=== PATIENT | female | born 1990 | race Caucasian/White ===

== ENCOUNTER 2017-08-19 17:36 | Emergency (ER) | payer OTHER, MEDICAID ==
--- NOTE | 2017-08-19 17:51 | ED Physician Documentation ---
PD HPI UPPER EXT INJURY - Stated complaint Stated Complaint: R HAND INJ - Chief complaint Chief Complaint: General - History obtained from History obtained from: Patient - History of Present Illness Location: Other (Right-handed woman who is up-to-date on tetanus Was at work today and a heavy metal implement rolled over her Third and fourth fingers, no other injuries.) Review of Systems Constitutional: reports: Reviewed and negative Cardiac: reports: Reviewed and negative Respiratory: reports: Reviewed and negative PD PAST MEDICAL HISTORY - Past Medical History Respiratory: Asthma - Past Surgical History Past Surgical History: No - Present Medications Home Medications: Ambulatory Orders Medication Instructions Recorded Confirmed Albuterol Sulfate [Albuterol 02/08/15 02/08/15 Sulfate Hfa] Cetirizine HCl [Zyrtec] 02/08/15 02/08/15 Cymbacort 02/08/15 02/08/15 Montelukast Sodium [Singulair] 02/08/15 02/08/15 No Known Home Medications [No 02/08/15 02/08/15 Known Home Medications] - Allergies Allergies/Adverse Reactions: Allergies Allergy/AdvReac Type Severity Reaction Status Date / Time No Known Drug Allergies Allergy Verified 08/19/17 17:52 - Social History Does the pt smoke?: Yes Smoking Status: Current every day smoker Does the pt drink ETOH?: Yes - POLST Patient has POLST: No PD ED PE NORMAL - Vitals Vital signs reviewed: Yes - General General: Alert and oriented X 3, No acute distress - Derm Derm: Normal color, Warm and dry - Psych Psych: Normal mood, Normal affect PD ED PE EXPANDED - Extremities JADA UE/Hands Visual: 1 - laceration (Deeper laceration, less than 1 cm In length though with normal flexor tendon function and neurovascular status at the tip.) 2 - laceration (On the radial side of the digit there is a shallow laceration with about a 20% subungual hematoma, some swelling and tenderness there. She is insensate on the side of the nailbed there but just at the distal tip.) Results - Vitals Vitals: Vital Signs - 24 hr 08/19/17 08/19/17 17:39 19:17 Temperature 36.1 C L 36.3 C L Heart Rate 83 84 Respiratory 18 18 Rate Blood Pressure 142/93 H 138/74 H O2 Saturation 99 99 Oxygen O2 Source Room air - Rads (name of study) 3 views of the right hand Radiology: EMP read contemporaneously (Soft tissue swelling, no fracture) Procedures - Laceration (location) R Length in cm: 1 Wound type: Linear Anesthesia: Lidocaine 1% Wound Preparation: Betadine, Irrigated copiously NS Skin layer closure: Nylon, Interrupted, Size #-0 - enter number (4-0), Sutures - enter # (2) Other: Patient tolerated well, No complications, Neurovascular intact, Dressing applied Complexity: Simple Departure - Departure Disposition: 01 Home, Self Care Clinical Impression: Crush injury of hand Qualifiers: Encounter type: initial encounter Laterality: right Qualified Code(s): S67.21XA - Crushing injury of right hand, initial encounter Finger laceration Qualifiers: Encounter type: initial encounter Finger: unspecified finger Damage to nail status: without damage Foreign body presence: without foreign body Laterality: right Qualified Code(s): S61.219A - Laceration without foreign body of unspecified finger without damage to nail, initial encounter Condition: Good Record reviewed to determine appropriate education?: Yes Instructions: ED Laceration Hand Comments: Come back for any signs of infection which would include: Redness, swelling, drainage, increased pain, or fevers. Follow-up with your physician in 14 days for suture removal. Your blood pressure was elevated today on check into the emergency department. This does not mean that you have hypertension, it is a common phenomenon to come to the emergency department and have elevated blood pressure. I recommend that you see your primary care physician within the week to have it rechecked when you are feeling better. Forms: Activity restrictions Discharge Date/Time: 08/19/17 19:00
[2017-08-19] MEDS ORDERED: BUFFERED LIDOCAINE 10 ML SYRINGE SUBQ STA (17:53)
[2017-08-19] MEDS ORDERED: LIDOCAINE 1% 2 ML VIAL SUBQ STA (17:56)
[2017-08-19] MEDS ORDERED: LIDOCAINE 1% 2 ML VIAL ONE (18:03)
[2017-08-19 19:18] VITALS: BP 138/74
--- NOTE | 2017-08-19 19:18 | XRAY Report ---
EXAM: RIGHT HAND RADIOGRAPHY EXAM DATE: 08/19/2017 06:51 PM. CLINICAL HISTORY: Crush injury COMPARISON: None. TECHNIQUE: 3 views. FINDINGS: Bones: Normal. No fractures or bone lesions. Joints: Normal. No subluxations. Soft Tissues: There is soft tissue swelling over the distal tip of the long finger. IMPRESSION: Soft tissue swelling around the distal tip of the long finger. No acute fractures are zoë dent. [facility] Referring Provider Line: [phone] SITE ID: [id number]
== END 2017-08-19 19:00 | disposition home or self-care (01) ==
LOC: ED 17:36
DX: S67.21XA Crushing injury of right hand, initial encounter (principal); S61.214A Laceration without foreign body of right ring finger without damage to nail, initial encounter; W31.82XA Contact with other commercial machinery, initial encounter; Y99.0 Civilian activity done for income or pay; R03.0 Elevated blood-pressure reading, without diagnosis of hypertension; J45.909 Unspecified asthma, uncomplicated; F17.200 Nicotine dependence, unspecified, uncomplicated
CPT/HCPCS: 12001; 99283

== ENCOUNTER 2018-06-04 07:46 | Emergency (ER) | payer SELFPAY ==
[2018-06-04 08:02] VITALS: BP 134/75
--- NOTE | 2018-06-04 08:48 | ED Physician Documentation ---
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 She now has some swelling around her eye as well. Seems to be extending over to the other eye. She has improvement in the amount of swelling today after being up and ambulating. She has had something similar to this happen in her armpit where she allowed the infection to get to the size of a baseball and had to be incised and drained. She does state that she has been getting some drainage out of the area by pushing in it and expressing the area. She has been using a warm compress. Review of Systems Constitutional: denies: Fever, Chills, Myalgias Eyes: reports: Other (blurring of the vision. Swelling colt-orbital to the right). 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 - Present Medications Home Medications: Ambulatory Orders Medication Instructions Recorded Confirmed Albuterol Sulfate [Albuterol 02/08/15 02/08/15 Sulfate Hfa] Montelukast Sodium [Singulair] 02/08/15 02/08/15 Sulfamethox/Trimeth 800/160 1 each PO BID #14 tablet 06/04/18 [Bactrim Ds 800/160] - Allergies Allergies/Adverse Reactions: Allergies Allergy/AdvReac Type Severity Reaction Status Date / Time No Known Drug Allergies Allergy Verified 06/04/18 08:02 - Social History Does the pt smoke?: Yes Smoking Status: Current every day smoker Does the pt drink ETOH?: Yes Does the pt have substance abuse?: No - Immunizations Immunizations are current?: Yes - POLST Patient has POLST: No PD ED PE NORMAL - Vitals Vital signs reviewed: Yes (normal ) - General General: Alert and oriented X 3, No acute distress, Well developed/nourished - HEENT HEENT: Atraumatic, PERRL, EOMI, Other (There is a raised area about 2cm round over the right eye and there is swelling that extends to the colt-orbital tissues on the right and blunts the epicanthal fold. There is no fluctuance to the area and I am not able to express pus now. There is extention of the swelling to the left just reaching the corner of the left eyebrow this morning.) - Neck Neck: Supple, no meningeal sign, No bony TTP - Respiratory Respiratory: No respiratory distress - Derm Derm: Normal color, Warm and dry, No rash - Extremities Extremities: No deformity, No edema - Neuro Neuro: Alert and oriented X 3, profile trimmer 2-12 intact, No motor deficit, No sensory deficit, Normal speech Eye Opening: Spontaneous Motor: Obeys Commands Verbal: Oriented GCS Score: 15 - Psych Psych: Normal mood, Normal affect Results - Vitals Vitals: Vital Signs - 24 hr 06/04/18 07:53 Temperature 36 C L Heart Rate 73 Respiratory 16 Rate Blood Pressure 134/75 H O2 Saturation 96 Oxygen O2 Source Room air PD MEDICAL DECISION MAKING - ED course Complexity details: considered differential, d/w patient, d/w family ED course: 27-year-old female with an abscess to the forehead that is tracked down into the periorbital tissues does not have fluctuance this morning and we have discussed ripening and reasons to return to the emergency department. She will continue use a warm compress will place her on some . Departure - Departure Disposition: 01 Home, Self Care Clinical Impression: Abscess of forehead Condition: Stable Instructions: ED Staph Infec Abx Tx Only Follow-Up: Natalie Short PA [Primary Care Provider] - Prescriptions: Sulfamethox/Trimeth 800/160 [Bactrim Ds 800/160] 1 each PO BID #14 tablet
== END 2018-06-04 09:04 | disposition home or self-care (01) ==
LOC: ED 07:46
DX: L02.01 Cutaneous abscess of face (principal); F17.200 Nicotine dependence, unspecified, uncomplicated
CPT/HCPCS: 99283

== ENCOUNTER 2019-02-22 16:17 | Emergency (ER) | payer SELFPAY ==
--- NOTE | 2019-02-22 16:38 | ED Physician Documentation ---
History of Present Illness - Stated complaint Stated Complaint: FEM /UNABLE TO MOVE HANDS - Chief complaint Chief Complaint: General - History obtained from History obtained from: Patient - History of Present Illness Timing: Today Pain level max: 0 Pain level now: 0 Improved by: nothing Worsened by: nothing - Additonal information Additional information: states having hand spasms today. worse with movement and better with rest. had 1 episode of dry heaving today. No recent travel. Smokes 1 ppd and drinks 5-6 alcohol drinks per day. takes albuterol at home. Denies IVDU. 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 Also states having vaginal bleeding. States copper IUD placed in 05/2018. States had cramping 3 months ago. States longer menses than normal. States 14 days of bleeding at this time. 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 - Present Medications Home Medications: Ambulatory Orders Medication Instructions Recorded Confirmed Albuterol Sulfate [Albuterol 02/08/15 02/08/15 Sulfate Hfa] Montelukast Sodium [Singulair] 02/08/15 02/08/15 - Allergies Allergies/Adverse Reactions: Allergies Allergy/AdvReac Type Severity Reaction Status Date / Time No Known Drug Allergies Allergy Verified 02/22/19 16:22 - Social History Does the pt smoke?: Yes Smoking Status: Current every day smoker Does the pt drink ETOH?: Yes Does the pt have substance abuse?: No - Immunizations Immunizations are current?: Yes - POLST Patient has POLST: No PD ED PE NORMAL - Vitals Vital signs reviewed: Yes - General General: Alert and oriented X 3, No acute distress - HEENT HEENT: Moist mucous membranes - Neck Neck: Supple, no meningeal sign - Cardiac Cardiac: RRR - Respiratory Respiratory: No respiratory distress, Clear bilaterally - Abdomen Abdomen: Soft, Non tender, Non distended - Derm Derm: Warm and dry - Extremities Extremities: Other (hands held in carpal spasm position.) - Neuro Neuro: Alert and oriented X 3 - Psych Psych: Normal mood, Normal affect Results - Vitals Vitals: Vital Signs - 24 hr 02/22/19 02/22/19 16:19 18:37 Temperature 36.9 C Heart Rate 84 65 Respiratory 20 18 Rate Blood Pressure 140/86 H 132/82 H O2 Saturation 98 98 Oxygen O2 Source Room air - Labs Labs: Laboratory Tests 02/22/19 02/22/19 02/22/19 17:00 17:00 17:00 WBC 4.9 RBC 4.31 Hgb 14.0 Hct 42.6 MCV 98.8 MCH 32.5 H MCHC 32.9 RDW 13.4 Plt Count 235 MPV 9.3 Neut # (Auto) 1.3 L Lymph # (Auto) 3.1 Rush # (Auto) 0.4 Eos # (Auto) 0.1 Baso # (Auto) 0.1 Absolute Nucleated RBC 0.00 Nucleated RBC % 0.0 Sodium 143 Potassium 3.6 Chloride 105 Carbon Dioxide 25 Anion Gap 13.0 BUN 9 Creatinine 0.6 Estimated GFR (MDRD) 118 Glucose 96 Calcium 8.9 Phosphorus 4.1 Magnesium 2.0 Total Bilirubin 0.5 AST 30 ALT 26 Alkaline Phosphatase 45 Total Protein 7.5 Albumin 4.4 Globulin 3.1 Albumin/Globulin Ratio 1.4 Lipase 26 TSH 0.96 Urine Color Urine Clarity Urine pH Ur Specific [place] Urine Protein Urine Glucose (UA) Urine Ketones Urine Occult Blood Urine Nitrite Urine Bilirubin Urine Urobilinogen Ur Leukocyte Esterase Ur Microscopic Review Urine Culture Comments Urine HCG, Qual Salicylates < 6.0 Urine Opiates Screen Ur Oxycodone Screen Urine Methadone Screen Ur Propoxyphene Screen Acetaminophen < 10 L Ur Barbiturates Screen Ur Tricyclics Screen Ur Phencyclidine Scrn Ur Amphetamine Screen U Methamphetamines Scrn U Benzodiazepines Scrn Urine Cocaine Screen U Cannabinoids Screen Ethyl Alcohol 319.0 02/22/19 02/22/19 17:00 17:00 WBC RBC Hgb Hct MCV MCH MCHC RDW Plt Count MPV Neut # (Auto) Lymph # (Auto) Rush # (Auto) Eos # (Auto) Baso # (Auto) Absolute Nucleated RBC Nucleated RBC % Sodium Potassium Chloride Carbon Dioxide Anion Gap BUN Creatinine Estimated GFR (MDRD) Glucose Calcium Phosphorus Magnesium Total Bilirubin AST ALT Alkaline Phosphatase Total Protein Albumin Globulin Albumin/Globulin Ratio Lipase TSH Urine Color YELLOW Urine Clarity CLEAR Urine pH 6.0 Ur Specific [place] <=1.005 Urine Protein NEGATIVE Urine Glucose (UA) NEGATIVE Urine Ketones NEGATIVE Urine Occult Blood NEGATIVE Urine Nitrite NEGATIVE Urine Bilirubin NEGATIVE Urine Urobilinogen 0.2 (NORMAL) Ur Leukocyte Esterase NEGATIVE Ur Microscopic Review NOT INDICATED Urine Culture Comments NOT INDICATED Urine HCG, Qual NEGATIVE Salicylates Urine Opiates Screen NEGATIVE Ur Oxycodone Screen NEGATIVE Urine Methadone Screen NEGATIVE Ur Propoxyphene Screen NEGATIVE Acetaminophen Ur Barbiturates Screen NEGATIVE Ur Tricyclics Screen NEGATIVE Ur Phencyclidine Scrn NEGATIVE Ur Amphetamine Screen NEGATIVE U Methamphetamines Scrn NEGATIVE U Benzodiazepines Scrn NEGATIVE Urine Cocaine Screen NEGATIVE U Cannabinoids Screen NEGATIVE Ethyl Alcohol PD MEDICAL DECISION MAKING - ED course Complexity details: reviewed results, re-evaluated patient, considered di fferential, d/w patient, d/w family ED course: 28-year-old female presents to the emergency department with carpal spasms. Also appears to be having dysfunctional uterine bleeding associated with her IUD. No significant anemia. She is well-appearing, nontoxic. Afebrile. Abdomen soft, nontender nondistended. No significant laboratory abnormalities. Feels better after IV fluids and a banana bag. Symptoms resolved. Counseled regarding cessation of alcohol use. Resources given. Patient counseled regarding signs and symptoms for which I believe and urgent re-evaluation would be necessary. Patient with good understanding of and agreement to plan and is comfortable going home at this time This document was made in part using voice recognition software. While efforts are made to proofread this document, sound alike and grammatical errors may occur. Departure - Departure Disposition: 01 Home, Self Care Clinical Impression: Spasms of the hands or feet, Dysfunctional uterine bleeding Alcohol intoxication Qualifiers: Complication of substance-induced condition: uncomplicated Qualified Code(s): F10.920 - Alcohol use, unspecified with intoxication, uncomplicated Condition: Good Instructions: ED Bleed Irregular Vaginal, ED Alcohol Intoxication Follow-Up: your,doctor in 1 week [Other] Comments: Drink plenty of water. Follow-up with your doctor for further care. You should stop drinking. Resources were given to you today. You should also follow-up with your doctor regarding your dysfunctional uterine bleeding from your IUD. Return if you worsen Discharge Date/Time: 02/22/19 18:46
[2019-02-22] MEDS ORDERED: SODIUM CHLORIDE 0.9% 1,000 ML IV ONE (16:58)
[2019-02-22 17:08] LABS: MUDS CUTOFF CONCENTRATIONS CUTOFF CONC BELOW:
[2019-02-22 17:09] LABS: BASOPHILS # (AUTO) 0.1 10^3/uL (0.0-0.1); BASOPHILS % (AUTO) 1.2 %; EOSINOPHILS # (AUTO) 0.1 10^3/uL (0.0-0.7); EOSINOPHILS % (AUTO) 2.2 %; LYMPHOCYTES # (AUTO) 3.1 10^3/uL (1.5-3.5); LYMPHOCYTES % (AUTO) 62.8 %; MEAN CORPUSCULAR HEMOGLOBIN 32.5 pg (27.0-31.0); MEAN CORPUSCULAR HGB CONC 32.9 g/dL (32.0-36.0); MEAN CORPUSCULAR VOLUME 98.8 fL (81.0-99.0); MEAN PLATELET VOLUME 9.3 fL (7.9-10.8); MONOCYTES # (AUTO) 0.4 10^3/uL (0.0-1.0); NEUTROPHILS # (AUTO) 1.3 10^3/uL (1.5-6.6); NEUTROPHILS % (AUTO) 25.6 %; PLT - PLATELET COUNT 235 10^3/uL (130-450); RED BLOOD COUNT 4.31 10^6/uL (4.20-5.40); RED CELL DISTRIBUTION WIDTH 13.4 % (12.0-15.0); WHITE BLOOD COUNT 4.9 x10^3/uL (4.8-10.8)
[2019-02-22 17:12] LABS: BILIRUBIN,URINE NEGATIVE (NEGATIVE); GLUCOSE, URINE (UA) NEGATIVE (NEGATIVE); KETONES,URINE (UA) NEGATIVE (NEGATIVE); LEUKOCYTE ESTERASE, URINE NEGATIVE (NEGATIVE); NITRITE,URINE NEGATIVE (NEGATIVE); OCCULT BLOOD,URINE NEGATIVE (NEGATIVE); PROTEIN,URINE NEGATIVE (NEGATIVE); UROBILINOGEN,URINE 0.2 (NORMAL) E.U./dL (NORMAL)
[2019-02-22 17:14] LABS: CLARITY,URINE CLEAR (CLEAR); HCG UR QUAL NEGATIVE
[2019-02-22 17:29] LABS: CARBON DIOXIDE - CO2 25 mmol/L (21-32); CHLORIDE 105 mmol/L (101-111); SODIUM 143 mmol/L (135-145)
[2019-02-22 17:30] LABS: ALKALINE PHOSPHATASE 45 IU/L (42-121); ALT ALANINE AMINOTRANSFERASE 26 IU/L (10-60); AST ASPARTATE AMINOTRANSFERASE 30 IU/L (10-42); BILIRUBIN,TOTAL 0.5 mg/dL (0.2-1.0); BUN - BLOOD UREA NITROGEN 9 mg/dL (6-20); CALCIUM 8.9 mg/dL (8.5-10.3); CREATININE 0.6 mg/dL (0.4-1.0); GFR - MDRD 118 (>89); GLUCOSE 96 mg/dL (70-100); PHOSPHORUS 4.1 mg/dL (2.5-4.6); TOTAL PROTEIN 7.5 g/dL (6.7-8.2)
[2019-02-22 17:31] LABS: ALBUMIN 4.4 g/dL (3.2-5.5); ALBUMIN/GLOBULIN RATIO 1.4 (1.0-2.2); LIPASE 26 U/L (22-51)
[2019-02-22 17:32] LABS: ACETAMINOPHEN < 10 ug/mL (10-30); SALICYLATE < 6.0 mg/dL
[2019-02-22] MEDS ORDERED: FOLIC ACID INJ 1 MG, THIAMINE INJ 100 MG, MAGNESIUM SULFATE 2 GM, MULTIVITAMIN 10 ML in... IV STA ×5 (17:39)
[2019-02-22 17:41] LABS: AMPHETAMINE SCREEN,URINE NEGATIVE (NEGATIVE); BENZODIAZEPINES SCREEN, URINE NEGATIVE (NEGATIVE); COCAINE SCREEN URINE NEGATIVE (NEGATIVE); METHADONE SCREEN, URINE NEGATIVE (NEGATIVE); METHAMPHETAMINES SCREEN, URINE NEGATIVE (NEGATIVE); OPIATE SCREEN, URINE NEGATIVE (NEGATIVE); OXYCODONE SCREEN, URINE NEGATIVE (NEGATIVE); PROPOXYPHENE SCREEN, URINE NEGATIVE (NEGATIVE); TRICYCLIC ANTIDEPRESSANT,URINE NEGATIVE (NEGATIVE)
[2019-02-22] MEDS ORDERED: THIAMINE 100 MG/1 ML 2 ML MDV ONE (17:56)
[2019-02-22] MEDS ORDERED: MAGNESIUM SULFATE 1 GM/2 ML VIAL ONE (18:07)
[2019-02-22 18:37] VITALS: BP 132/82
== END 2019-02-22 18:46 | disposition home or self-care (01) ==
LOC: ED 16:17
DX: N93.8 Other specified abnormal uterine and vaginal bleeding (principal); R29.0 Tetany; Z97.5 Presence of (intrauterine) contraceptive device; F10.920 Alcohol use, unspecified with intoxication, uncomplicated; F17.200 Nicotine dependence, unspecified, uncomplicated
CPT/HCPCS: 36415; 80320; 80329; 81003; 81025; 83690; 83735; 84100; 96361; 96374; 99283; 99284; J3411; 80053; 80306; 80307; 81001; 84443; 85025; 87086

== ENCOUNTER 2020-08-15 11:03 | Emergency (ER) | payer BC ==
--- NOTE | 2020-08-15 11:48 | XRAY Report ---
PROCEDURE: Chest 1 View X-Ray INDICATIONS: cough TECHNIQUE: One view of the chest was acquired. COMPARISON: None FINDINGS: Surgical changes and devices: None. Lungs and pleura: No pleural effusions or pneumothorax. Increased bronchovascular markings in bilate ral hilar region are seen with bronchial wall thickening. No focal infiltrate. Mediastinum: Mediastinal contours appear normal. Heart size is normal. Bones and chest wall: No suspicious bony lesions. Overlying soft tissues appear unremarkable. IMPRESSION: Suggestion of reactive airway disease such as bronchiolitis or asthma. No focal infiltrate, pleural e ffusion or pneumothorax. Reviewed by: Maximo Dangelo MD on 08/15/2020 11:47 AM PST Approved by: Maximo Dangelo MD on 08/15/2020 11:47 AM PST Station ID: [id number]
--- NOTE | 2020-08-15 12:16 | ED Physician Documentation ---
PD HPI URI - Stated complaint Stated Complaint: COUGH,SOA,REYNA - Chief complaint Chief Complaint: Resp - History obtained from History obtained from: Patient - History of Present Illness Timing - onset: How many weeks ago (1) Timing duration: Weeks (1) Timing details: Gradual onset Pain level max: 5 Pain level now: 4 Associated symptoms: Nasal congestion, Rhinorrhea, Dry cough, Dyspnea (h/o asthma). No: Fever, Chills Contributing factors: Sick contact, COPD / asthma Improves by: Rest Worsened by: Activity, Breathing Recently seen: Not recently seen - Additional information Additional information: 30-year-old female with cough and congestion for 8 days. She is using her inhaler with relief. Denies any Covid exposure. States occasionally feels short of breath. She is only using her inhaler 1-2 times per day. 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 Home Medications: Ambulatory Orders Medication Instructions Recorded Confirmed Albuterol Sulfate [Albuterol 02/08/15 02/08/15 Sulfate Hfa] Albuterol Sulf [Ventolin Hfa 1 - 2 puffs INH Q4HR PRN #1 inhaler 08/15/20 Inhaler] Benzonatate [Tessalon] 200 mg PO TID PRN #30 capsule 08/15/20 predniSONE [Deltasone] 10 mg PO [id number] #42 tab 08/15/20 - Allergies Allergies/Adverse Reactions: Allergies Allergy/AdvReac Type Severity Reaction Status Date / Time No Known Drug Allergies Allergy Verified 08/15/20 11:12 - Social History Does the pt smoke?: Yes Smoking Status: Current every day smoker Does the pt drink ETOH?: Yes Does the pt have substance abuse?: No - Immunizations Immunizations are current?: Yes - POLST Patient has POLST: No PD ED PE NORMAL - Vitals Vital signs reviewed: Yes - General General: Alert and oriented X 3, No acute distress, Well developed/nourished - HEENT HEENT: Moist mucous membranes - Neck Neck: Supple, no meningeal sign - Cardiac Cardiac: RRR, Strong equal pulses - Respiratory Respiratory: No respiratory distress, Clear bilaterally - Abdomen Abdomen: Soft, Non tender, Non distended - Derm Derm: Warm and dry, No rash - Extremities Extremities: No edema - Neuro Neuro: Alert and oriented X 3 - Psych Psych: Normal mood, Normal affect Results - Vitals Vitals: Vital Signs - 24 hr 08/15/20 08/15/20 11:10 12:25 Temperature 36.6 C 37.3 C Heart Rate 98 107 H Respiratory 18 18 Rate Blood Pressure 153/95 H 146/103 H O2 Saturation 98 97 Oxygen O2 Source Room air - Rads (name of study) Chest x-ray Radiology: Prelim report reviewed, EMP read contemporaneously, See rad report (No acute disease) PD MEDICAL DECISION MAKING - ED course Complexity details: reviewed results, considered differential, d/w patient ED course: Patient is well-appearing, nontoxic. Afebrile. No hypoxia. No respiratory distress. No acute findings on chest x-ray. COVID-19 swab was sent. Given a spacer for home. Will prescribe antitussives medication as well as steroids. Patient with a longstanding history of asthma. Patient counseled regarding signs and symptoms for which I believe and urgent re-evaluation would be necessary. Patient with good understanding of and agreement to plan and is comfortable going home at this time This document was made in part using voice recognition software. While efforts are made to proofread this document, sound alike and grammatical errors may occur. Departure - Departure Disposition: 01 Home, Self Care Clinical Impression: Viral URI with cough Condition: Good Instructions: ED URI Viral W Wheezing Follow-Up: your,doctor in 1 week if not better [Other] Prescriptions: Albuterol Sulf [Ventolin Hfa Inhaler] 1 - 2 puffs INH Q4HR PRN #1 inhaler PRN Reason: Shortness Of Air/Wheezing predniSONE [Deltasone] 10 mg PO [id number] #42 tab Benzonatate [Tessalon] 200 mg PO TID PRN #30 capsule PRN Reason: Cough Comments: Use your inhaler with the spacer. Return if you worsen. Follow-up with your doctor for further care. Your x-ray does not show any pneumonia today. You have a Covid test pending. You need to self quarantine until the result is done and negative. Do not leave your house. Do not get near anybody. The results should be done in 48 to 72 hours. We will call with a positive result, the fastest way to get a negative result for confirmation though is to go to the hospital website at [email or web address], click on the my [facility] tab and sign up for the patient portal. If any friends or family get sick and would like to have a Covid test done, but do not have signs or symptoms that would necessitate being hospitalized, we encourage testing through our coronavirus swabbing station, call [phone] to schedule an appointment. Discharge Date/Time: 08/15/20 12:31
[2020-08-15 12:25] VITALS: BP 146/103
== END 2020-08-15 12:31 | disposition home or self-care (01) ==
LOC: ED 11:03
DX: J06.9 Acute upper respiratory infection, unspecified (principal); J45.909 Unspecified asthma, uncomplicated; F17.200 Nicotine dependence, unspecified, uncomplicated
CPT/HCPCS: 99284

== ENCOUNTER 2021-07-31 20:49 | Emergency (ER) | payer BC ==
[2021-07-31 21:02] VITALS: BP 146/93
== END 2021-07-31 22:12 | disposition left against medical advice (07) ==
LOC: ED 20:49
DX: Z53.21 Procedure and treatment not carried out due to patient leaving prior to being seen by health care provider (principal)